=== PATIENT | female | born 1950 | race Caucasian/White ===

== ENCOUNTER 2018-09-30 23:22 | Emergency (ER) | payer OTHER, MEDICAID ==
[~2018-09-30] VITALS: Ht 157.5 cm; Wt 142.6 kg
[~2018-09-30 23:22] MED LIST: ACET-812 PO; ASPI-974 PO; FEBU40TA PO; FLUT16SP26 BOTHNARES; METF500T PO; ZOLP10TA5 PO
[2018-09-30 23:30] VITALS: BP 131/83
[2018-10-01] MEDS ORDERED: fluconazole 100mg tablet PO ONE (00:20)
[2018-10-01] MEDS ORDERED: ondansetron 4mg rapidly disintigrating tab PO ONE (00:20)
[2018-10-01] MEDS ORDERED: sulfamethoxazole/trimethoprim DS (800/160mg) tablet PO ONE (00:20)
[2018-10-01] MEDS ORDERED: SULF1TAB49 PO (00:23)
[2018-10-01] MEDS ORDERED: FLUC200T PO (00:23)
== END 2018-10-01 00:43 | disposition home or self-care (01) ==
LOC: ER 23:23
DX: B37.9 Candidiasis, unspecified (principal); I50.9 Heart failure, unspecified; J44.9 Chronic obstructive pulmonary disease, unspecified; E11.9 Type 2 diabetes mellitus without complications; M10.9 Gout, unspecified; Z88.5 Allergy status to narcotic agent; Z79.84 Long term (current) use of oral hypoglycemic drugs; Z79.82 Long term (current) use of aspirin; Z79.899 Other long term (current) drug therapy
CPT/HCPCS: 99284; J2405

== ENCOUNTER 2022-07-26 13:26 | Emergency (ER) | payer OTHER, MEDICAID ==
[~2022-07-26] VITALS: Ht 160 cm; Wt 150.0 kg
[~2022-07-26 13:26] MED LIST changes: -ASPI-974 PO; -FLUT16SP26 BOTHNARES; +FURO40TA4 PO; +LANTUS SQ; -METF500T PO; -ZOLP10TA5 PO; +piperacillin/tazo 3.375gm/50ml 50 ML IV ONE
[2022-07-26 14:09] LABS: ALANINE AMINOTRANSFERASE 11 U/L (12-78); ALBUMIN 2.6 G/DL (3.4-5.0); ALBUMIN/GLOBULIN RATIO 0.7 (1.1-1.5); ALKALINE PHOSPHATASE 90 IU/L (46-116); ANION GAP 4 (8-16); ASPARTATE AMINO TRANSFERASE 20 U/L (10-37); BILIRUBIN,TOTAL 0.7 MG/DL (0.1-1.0); BLOOD UREA NITROGEN 14 MG/DL (7-18); BUN/CREATININE RATIO 15.9 (10.0-20.0); CALCIUM 8.6 MG/DL (8.5-10.1); CHLORIDE 102 MMOL/L (99-107); CREATININE 0.88 MG/DL (0.40-0.90); GLUCOSE 182 MG/DL (70-104); POTASSIUM 3.8 MMOL/L (3.5-5.1); SODIUM 140 MMOL/L (135-145); TOTAL CARBON DIOXIDE 33.8 MMOL/L (24-32); TOTAL PROTEIN 6.1 G/DL (6.4-8.2); eGFR 64 ML/MIN
[2022-07-26 14:27] LABS: BASOPHILS % (AUTO) 0.3 % (0-1); EOSINOPHILS # (AUTO) 0.2 X10'3 (0-0.9); EOSINOPHILS % (AUTO) 2.5 % (0-6); HEMATOCRIT 48.6 % (35.0-45.0); HEMOGLOBIN 15.6 g/dl (12.0-16.0); LYMPHOCYTES # (AUTO) 1.2 X10'3 (1.1-4.8); LYMPHOCYTES % (AUTO) 13.7 % (21-51); MEAN CORPUSCULAR HGB CONC 32.1 g/dL (33.0-36.5); MEAN CORPUSCULAR VOLUME 90.2 FL (78-98); MEAN PLATELET VOLUME 7.8 FL (7.4-10.4); MONOCYTES # (AUTO) 0.7 X10'3 (0-0.9); MONOCYTES % (AUTO) 8.8 % (2-12); NEUTROPHILS # (AUTO) 6.3 X10'3 (1.8-7.7); NEUTROPHILS % (AUTO) 74.7 % (42-75); PLATELET COUNT 198 X10'3 (140-440); RED BLOOD COUNT 5.39 X10'6 (4.20-5.60); WHITE BLOOD COUNT 8.4 X10'3 (4.5-11.0)
[2022-07-26 14:57] LABS: PLATELET ESTIMATE NORMAL
[2022-07-26 14:58] LABS: ANISOCYTOSIS 2+; ELLIPTOCYTES FEW
--- NOTE | 2022-07-26 17:04 | NUR ---
EKG BEING DONE AT THIS TIME. RN WILL OBTAIN IV ONCE COMPLETE.
--- NOTE | 2022-07-26 17:12 | NUR ---
EKG COMPLETED DR PARRISH NOTIFIED.
--- NOTE | 2022-07-26 17:17 | NUR ---
RN OBTAINING IV AT THIS TIME.
--- NOTE | 2022-07-26 17:30 | NUR ---
2ND RN ATTEMPTING IV AT THIS TIME WITH US.
--- NOTE | 2022-07-26 18:17 | NUR ---
RN NOTIFIED DR PARRISH THAT PT TROP [phone]. NO ORDS RECD AT THIS TIME.
[2022-07-26] MEDS ORDERED: aspirin 325mg tablet PO ONE (18:20)
[2022-07-26] MEDS ORDERED: nitroGLYCERIN 1gm ointment UD TP ONE (18:20)
[2022-07-26] MEDS ORDERED: furosemide 10 MG/1 ML 10ml inj IV ONE (18:20)
[2022-07-26] MEDS ORDERED: piperacillin/tazo 3.375gm/50ml 50 ML IV ONE (19:50)
--- NOTE | 2022-07-26 19:54 | NUR ---
SALMA TO RUN OVER 30MIN PER MD VERBAL ORDER
[2022-07-26] MEDS ORDERED: VANCOMYCIN 1,500MG inj. 1,500 MG in normal saline 500ml IV soln 300 ML IV ONE (20:00)
[2022-07-26] MEDS ORDERED: SULF1TAB49 PO (22:01)
[2022-07-26] MEDS ORDERED: CEPH-585 PO (22:01)
[2022-07-26 22:20] VITALS: BP 140/75
== END 2022-07-26 22:21 | disposition home or self-care (01) ==
LOC: ER 13:27
DX: R06.00 Dyspnea, unspecified (principal); L03.116 Cellulitis of left lower limb; L03.115 Cellulitis of right lower limb; R77.8 Other specified abnormalities of plasma proteins; J44.9 Chronic obstructive pulmonary disease, unspecified; E11.9 Type 2 diabetes mellitus without complications; I11.9 Hypertensive heart disease without heart failure; Z88.5 Allergy status to narcotic agent; Z88.6 Allergy status to analgesic agent; Z79.899 Other long term (current) drug therapy; Z79.1 Long term (current) use of non-steroidal anti-inflammatories (NSAID); Z79.2 Long term (current) use of antibiotics
CPT/HCPCS: 36415; 71045; 80053; 83880; 84484; 85008; 85025; 93005; 96365; 96375; 99285; J1940; J2543

== ENCOUNTER 2023-03-24 11:56 | Emergency (ER) | payer OTHER, MEDICAID ==
[~2023-03-24] VITALS: Ht 162.6 cm; Wt 181.0 kg
[~2023-03-24 11:56] MED LIST changes: +ALBU6.7H14 INH; +ALLO100T PO; +BUDE10.2 INH; -FEBU40TA PO; +FLUT250D PO; +LACT1CAP74 PO; +LINA5TAB4 PO; +LOSA25TA41 PO; +METO-395 PO; -piperacillin/tazo 3.375gm/50ml 50 ML IV ONE
[2023-03-24 12:26] VITALS: BP 166/100; PULSE 72; TEMP 97.8; O2SAT 95
[2023-03-24 15:09] VITALS: RESP 16
[2023-03-24] MEDS: ketorolac tromethamine 15mg/ml inj. IM ONE (15:09)
[2023-03-24] MEDS ORDERED: CYCL-1 PO (15:16)
[2023-03-24] MEDS ORDERED: LIDO700A32 TOP (15:16)
== END 2023-03-24 15:17 | disposition home or self-care (01) ==
LOC: ER 11:57
DX: S39.012A Strain of muscle, fascia and tendon of lower back, initial encounter (principal); I11.0 Hypertensive heart disease with heart failure; I50.9 Heart failure, unspecified; J44.9 Chronic obstructive pulmonary disease, unspecified; E11.9 Type 2 diabetes mellitus without complications; Z88.5 Allergy status to narcotic agent; Z88.6 Allergy status to analgesic agent; Z79.4 Long term (current) use of insulin; Z79.51 Long term (current) use of inhaled steroids; Z79.899 Other long term (current) drug therapy; X58.XXXA Exposure to other specified factors, initial encounter; Y93.89 Activity, other specified; Y92.89 Other specified places as the place of occurrence of the external cause; Y99.8 Other external cause status
CPT/HCPCS: 72074; 72100; 96372; 99284; J1885

== ENCOUNTER 2023-10-24 18:59 | Inpatient (IN) | payer BC, MEDICAID ==
[~2023-10-24] VITALS: Ht 160 cm; Wt 154.0 kg
[~2023-10-24 18:59] MED LIST changes: +CYCL-1 PO; +LIDO700A32 TOP
[2023-10-24 19:29] LABS: BASOPHILS % (AUTO) 0.3 % (0-1); EOSINOPHILS # (AUTO) 0.3 X10'3 (0-0.9); EOSINOPHILS % (AUTO) 3.4 % (0-6); HEMATOCRIT 45.3 % (35.0-45.0); HEMOGLOBIN 14.4 g/dl (12.0-16.0); LYMPHOCYTES # (AUTO) 0.8 X10'3 (1.1-4.8); MEAN CORPUSCULAR HEMOGLOBIN 29.3 PG (27.0-31.0); MEAN CORPUSCULAR HGB CONC 31.7 g/dL (33.0-36.5); MEAN CORPUSCULAR VOLUME 92.6 FL (78-98); MONOCYTES # (AUTO) 0.8 X10'3 (0-0.9); MONOCYTES % (AUTO) 9.3 % (2-12); NEUTROPHILS # (AUTO) 6.9 X10'3 (1.8-7.7); PLATELET COUNT 195 X10'3 (140-440); RED CELL DISTRIBUTION WIDTH 17.3 % (11.5-14.5); WHITE BLOOD COUNT 8.9 X10'3 (4.5-11.0)
[2023-10-24] MEDS: albuterol 2.5 MG/3 ML nebule NEB ONE (19:39)
[2023-10-24 19:43] VITALS: PULSE 84; RESP 18; O2SAT 95
[2023-10-24 19:46] LABS: ALANINE AMINOTRANSFERASE 16 U/L (12-78); ALBUMIN 2.1 G/DL (3.4-5.0); ALBUMIN/GLOBULIN RATIO 0.6 (1.1-1.5); ALKALINE PHOSPHATASE 82 IU/L (46-116); ANION GAP 0 (8-16); ASPARTATE AMINO TRANSFERASE 17 U/L (10-37); BILIRUBIN,TOTAL 0.6 MG/DL (0.1-1.0); BLOOD UREA NITROGEN 9 MG/DL (7-18); BUN/CREATININE RATIO 12.3 (10.0-20.0); CALCIUM 8.4 MG/DL (8.5-10.1); CHLORIDE 106 MMOL/L (99-107); CREATININE 0.73 MG/DL (0.40-0.90); GLUCOSE 184 MG/DL (70-104); LIPASE 46 U/L (16-77); POTASSIUM 4.2 MMOL/L (3.5-5.1); PRO BRAIN NATRIURETIC PEPTIDE 551 PG/ML (0-125); SODIUM 143 MMOL/L (135-145); TOTAL CARBON DIOXIDE 37.1 MMOL/L (24-32); TOTAL PROTEIN 5.5 G/DL (6.4-8.2); eCRCL 58 ML/MIN; eGFR 79 ML/MIN
[2023-10-24 19:50] VITALS: PULSE 88; RESP 18; O2SAT 96
[2023-10-24] MEDS ORDERED: furosemide 10 MG/1 ML 10ml inj IV ONE (20:45)
[2023-10-24] MEDS: furosemide 20 MG/2 ML vial IV ONE (21:25)
[2023-10-24] MEDS: furosemide 10 MG/1 ML 10ml inj IV ONE (23:19)
[2023-10-24] MEDS: aspirin 81mg tab.chew PO ONE (23:19)
[2023-10-24] MEDS ORDERED: potassium Cl 40MEQ/1/2NS 520ml 520 ML IV PRN (23:20)
[2023-10-24] MEDS ORDERED: mag hydrox/Alum hydrox/simeth 30ml oral suspension PO PRN (23:20)
[2023-10-24] MEDS ORDERED: magnesium sulf-water 2g/50mL 50 ML IV PRN (23:20)
[2023-10-24] MEDS ORDERED: magnesium hydroxide 30ml (MOM) UD suspension PO PRN (23:20)
[2023-10-24] MEDS ORDERED: magnesium Cl slow-release 64mg tablet PO PRN (23:20)
[2023-10-24] MEDS ORDERED: magnesium sulf-water 4G/100mL 100 ML IV PRN (23:20)
[2023-10-24] MEDS ORDERED: acetaminophen 325mg tablet PO PRN (23:20)
[2023-10-24] MEDS ORDERED: ondansetron/PF 4mg/2ml inj IV PRN (23:20)
[2023-10-24] MEDS: nitroGLYCERIN 0.2mg/hour patch TD ONE (23:22)
[2023-10-24] MEDS ORDERED: glucagon, human recombinant 1mg kit SUBCUT PRN (23:25)
[2023-10-24] MEDS ORDERED: dextrose 50%-water 50ml dispensing syringe IV PRN ×2 (23:25)
[2023-10-24] MEDS ORDERED: DEXTROSE 15 GM of carb/4 tabs (each vial/BOTTLE has 4 tablets) PO PRN ×2 (23:25)
[2023-10-25] VITALS (13 sets, daily range): BP systolic 109–133; BP diastolic 65–87; PULSE 74–92; RESP 13–20; TEMP 97.5–98.5; O2SAT 3–97
[2023-10-25] MEDS ORDERED: PERFLUTREN PROTEIN-A MICROSPHR (Optison) 0.22 MG/ML 3ML VIAL IV PRN (00:15)
[2023-10-25 06:44] LABS: BASOPHILS % (AUTO) 0.3 % (0-1); EOSINOPHILS # (AUTO) 0.2 X10'3 (0-0.9); EOSINOPHILS % (AUTO) 2.9 % (0-6); HEMATOCRIT 45.3 % (35.0-45.0); HEMOGLOBIN 14.5 g/dl (12.0-16.0); LYMPHOCYTES # (AUTO) 0.7 X10'3 (1.1-4.8); LYMPHOCYTES % (AUTO) 7.9 % (21-51); MEAN CORPUSCULAR HEMOGLOBIN 29.8 PG (27.0-31.0); MEAN CORPUSCULAR HGB CONC 32.1 g/dL (33.0-36.5); MEAN PLATELET VOLUME 7.7 FL (7.4-10.4); MONOCYTES # (AUTO) 0.8 X10'3 (0-0.9); MONOCYTES % (AUTO) 9.9 % (2-12); NEUTROPHILS # (AUTO) 6.8 X10'3 (1.8-7.7); PLATELET COUNT 212 X10'3 (140-440); RED BLOOD COUNT 4.87 X10'6 (4.20-5.60); RED CELL DISTRIBUTION WIDTH 17.2 % (11.5-14.5); WHITE BLOOD COUNT 8.6 X10'3 (4.5-11.0)
[2023-10-25 07:00] LABS: ALANINE AMINOTRANSFERASE 14 U/L (12-78); ALBUMIN 2.1 G/DL (3.4-5.0); ALBUMIN/GLOBULIN RATIO 0.6 (1.1-1.5); ALKALINE PHOSPHATASE 79 IU/L (46-116); ANION GAP 0 (8-16); ASPARTATE AMINO TRANSFERASE 20 U/L (10-37); BILIRUBIN,TOTAL 0.9 MG/DL (0.1-1.0); BLOOD UREA NITROGEN 8 MG/DL (7-18); BUN/CREATININE RATIO 12.1 (10.0-20.0); CALCIUM 8.4 MG/DL (8.5-10.1); CHLORIDE 107 MMOL/L (99-107); CHOL/HDL RATIO 3.2 (0.00-4.99); CHOLESTEROL 131 MG/DL (0-200); CREATININE 0.66 MG/DL (0.40-0.90); GLUCOSE 130 MG/DL (70-104); HDL CHOLESTEROL 41 MG/DL (35-60); LDL CHOLESTEROL 79 MG/DL (50-100); MAGNESIUM 1.7 MG/DL (1.5-2.4); POTASSIUM 3.4 MMOL/L (3.5-5.1); SODIUM 145 MMOL/L (135-145); TOTAL CARBON DIOXIDE 37.6 MMOL/L (24-32); TOTAL PROTEIN 5.4 G/DL (6.4-8.2); TRIGLYCERIDES 76 MG/DL (20-135); eCRCL 65 ML/MIN; eGFR 88 ML/MIN
[2023-10-25] MEDS: INSULIN LISPRO 100 UNIT/ML INSULN.PEN MULTI-DOSE SQ SCH ×2 (07:00→09:00)
[2023-10-25 07:33] LABS: HEMOGLOBIN A1C 6.8 % (4.5-6.2)
[2023-10-25] MEDS ORDERED: furosemide 40mg tablet PO SCH (08:00)
[2023-10-25] MEDS: nystatin 15 GM powder TP SCH ×2 (08:00→20:29)
[2023-10-25] MEDS: K and/or MAG REPLACEMENT MC SCH (08:00)
[2023-10-25] MEDS: furosemide 40mg/4ml inj IV SCH (08:57)
[2023-10-25] MEDS: docusate sod 100mg capsule PO SCH (09:18)
[2023-10-25] MEDS: potassium Cl 20 mEq SR tablet PO PRN ×2 (09:18→20:29)
[2023-10-25] MEDS ORDERED: non-formulary drug (Acetaminophen (Tylenol Extra Strength) 2 TABLET) PO PRN (18:25)
[2023-10-25] MEDS: budesonide 0.5mg/2ml UD nebule IH SCH (19:33)
[2023-10-25] MEDS: ipratropium/albuterol 3ml nebule NEB PRN (19:33)
[2023-10-25] MEDS: ipratropium 0.5 MG/2.5ML nebule IH SCH (19:34)
[2023-10-25] MEDS: albuterol 2.5 MG/3 ML nebule NEB SCH (19:34)
[2023-10-25] MEDS: cyclobenzaprine 10mg tablet PO SCH (20:29)
[2023-10-25] MEDS: enoxaparin 40mg/0.4ml syringe SQ SCH (20:30)
[2023-10-25] MEDS: insulin glargine (Lantus) pen - multi-dose SQ SCH (21:25)
[2023-10-26] VITALS (8 sets, daily range): BP systolic 102–128; BP diastolic 48–77; PULSE 68–92; RESP 15–21; TEMP 97.6–98.3; O2SAT 91–96
[2023-10-26 06:33] LABS: BASOPHILS % (AUTO) 0.3 % (0-1); EOSINOPHILS # (AUTO) 0.2 X10'3 (0-0.9); EOSINOPHILS % (AUTO) 2.9 % (0-6); HEMATOCRIT 45.3 % (35.0-45.0); HEMOGLOBIN 14.4 g/dl (12.0-16.0); LYMPHOCYTES # (AUTO) 0.7 X10'3 (1.1-4.8); LYMPHOCYTES % (AUTO) 8.5 % (21-51); MEAN CORPUSCULAR HEMOGLOBIN 29.8 PG (27.0-31.0); MEAN CORPUSCULAR HGB CONC 31.9 g/dL (33.0-36.5); MEAN CORPUSCULAR VOLUME 93.4 FL (78-98); MEAN PLATELET VOLUME 7.3 FL (7.4-10.4); MONOCYTES # (AUTO) 0.8 X10'3 (0-0.9); MONOCYTES % (AUTO) 10.6 % (2-12); NEUTROPHILS # (AUTO) 6.2 X10'3 (1.8-7.7); NEUTROPHILS % (AUTO) 77.7 % (42-75); PLATELET COUNT 191 X10'3 (140-440); RED BLOOD COUNT 4.85 X10'6 (4.20-5.60); RED CELL DISTRIBUTION WIDTH 17.7 % (11.5-14.5)
[2023-10-26 06:42] LABS: ALANINE AMINOTRANSFERASE 13 U/L (12-78); ALBUMIN 2.1 G/DL (3.4-5.0); ALBUMIN/GLOBULIN RATIO 0.6 (1.1-1.5); ALKALINE PHOSPHATASE 73 IU/L (46-116); ANION GAP 1 (8-16); ASPARTATE AMINO TRANSFERASE 26 U/L (10-37); BILIRUBIN,TOTAL 0.9 MG/DL (0.1-1.0); BLOOD UREA NITROGEN 10 MG/DL (7-18); BUN/CREATININE RATIO 16.1 (10.0-20.0); CALCIUM 8.6 MG/DL (8.5-10.1); CHLORIDE 106 MMOL/L (99-107); CREATININE 0.62 MG/DL (0.40-0.90); GLUCOSE 135 MG/DL (70-104); MAGNESIUM 1.9 MG/DL (1.5-2.4); SODIUM 144 MMOL/L (135-145); TOTAL CARBON DIOXIDE 37.4 MMOL/L (24-32); TOTAL PROTEIN 5.5 G/DL (6.4-8.2); eCRCL 69 ML/MIN; eGFR > 90 ML/MIN
[2023-10-26 06:46] LABS: POTASSIUM 4.7 MMOL/L (3.5-5.1)
[2023-10-26] MEDS: lactobacillus rhamnosus 10,000 MMU CELLS/CAPSULE PO SCH (08:04)
[2023-10-26] MEDS: LIDOcaine 5% patch TP SCH (08:04)
[2023-10-26] MEDS: allopurinol 100mg tablet PO SCH (08:05)
[2023-10-26] MEDS: linagliptin 5mg tablet PO SCH (08:05)
[2023-10-26] MEDS: metoprolol succinate 25mg (24-HOUR) SR. Tablet PO SCH (08:05)
[2023-10-26] MEDS: losartan 25mg tablet PO SCH (08:05)
[2023-10-26] MEDS ORDERED: POTA10CA95 PO (11:02)
[2023-10-26] MEDS ORDERED: FURO40TA4 PO (11:02)
[2023-10-26] MEDS ORDERED: FLUC100T64 PO (11:02)
== END 2023-10-26 15:10 | disposition home or self-care (01) | DRG 280 ==
LOC: ER 19:00 → ED HOLD 23:22 → EDBEDREQ 10-25 00:44 → PCU 3S 10-25 01:33
PROVIDERS: ADMIT Internal Medicine Critical Care Medicine; ATTEND Family Medicine
DX: I11.0 Hypertensive heart disease with heart failure (principal); I50.33 Acute on chronic diastolic (congestive) heart failure; I21.A1 Myocardial infarction type 2; J96.20 Acute and chronic respiratory failure, unspecified whether with hypoxia or hypercapnia; E44.1 Mild protein-calorie malnutrition; E66.2 Morbid (severe) obesity with alveolar hypoventilation; Z68.44 Body mass index [BMI] 60.0-69.9, adult; J44.1 Chronic obstructive pulmonary disease with (acute) exacerbation; R18.8 Other ascites; R16.0 Hepatomegaly, not elsewhere classified; E87.6 Hypokalemia; K76.0 Fatty (change of) liver, not elsewhere classified; L30.4 Erythema intertrigo; I25.10 Atherosclerotic heart disease of native coronary artery without angina pectoris; E11.9 Type 2 diabetes mellitus without complications; Z88.5 Allergy status to narcotic agent; Z79.4 Long term (current) use of insulin; Z79.899 Other long term (current) drug therapy; Z90.49 Acquired absence of other specified parts of digestive tract; Z80.3 Family history of malignant neoplasm of breast; Z88.6 Allergy status to analgesic agent
CPT/HCPCS: 36415; 71045; 71250; 74018; 74176; 76700; 80053; 80061; 82948; 83036; 83690; 83735; 83880; 84484; 85025; 87081; 93005; 93306; 94640; 94760; 97110; 97116; 97161; 99285; G0378; J1650; J1815; J1940